=== PATIENT | female | born 2000 | race African-American/Black ===

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

== ENCOUNTER 2018-01-15 | Emergency (ER) | payer SELFPAY ==
[2018-01-15 00:47] LABS: Bilirubin Negative (Negative); Blood, Urine Negative (Negative); Clarity Cloudy (Clear); Glucose, Urine (Dipstick) Negative (Negative); Leukocyte Negative (Negative); Nitrite Negative (Negative); Protein, Urine (Dipstick) Negative (Neg-Trace); Specific Gravity, Urine 1.015 (1.005-1.030); Urobilinogen 0.2 mg/dL (0.2-1.0)
[2018-01-15 01:03] LABS: Bacteria/HPF Rare-Few HPF (None Seen); Crystals/HPF 4+ AMORPH PHOS HPF (Negative); RBC/HPF 0-3 HPF (0-3)
[2018-01-15 01:04] LABS: #Basophils 0.1 thou/uL (0.0-0.2); #Lymphocytes 2.6 thou/uL (1.20-3.40); #Monocytes 0.5 thou/uL (0.11-0.59); %Basophils 0.9 % (0.0-1.0); %Eosinophils 0.6 % (0.0-10.0); %Lymphocytes 36.2 % (28.0-48.0); %Neutrophils 55.4 % (31.0-61.0); BHCG - Serum Negative (NEGATIVE); Hemoglobin 11.4 g/dL (12.0-16.0); Mean Corpuscular HGB CONC 33.7 g/dL (32.0-36.0); Mean Corpuscular Hemoglobin 29.9 pg (25.0-35.0); Mean Corpuscular Volume 88.8 fl (77.0-87.0); Mean Platelet Volume 5.9 fL (7.4-10.4); Platelet Count 238 thou/uL (130-400); Pregs Control Background? CLEAR/WHITE (CLR/WHITE); Pregs Control Bar Appear? YES (CONTROL BAR); RBC Distribution Width 11.9 % (11.5-14.5); Red Blood Cell (RBC) Count 3.79 mill/uL (4.00-5.20); White Blood Cell (WBC) Count 7.2 thou/uL (4.8-10.8)
[2018-01-15 01:27] LABS: ALT (SGPT) Less than 7 U/L (8-55); AST (SGOT) 15 U/L (5-30); Albumin 3.9 g/dL (3.5-5.0); Alkaline Phosphatase 57 U/L (40-150); Anion Gap 11 mmol/L (10-20); BUN (Urea Nitrogen) 15 mg/dL (8.4-21.0); Bilirubin, Total 0.3 mg/dL (0.2-1.2); Calc. Creatinine Clearance 0 mL/min (70-130); Calcium 9.3 mg/dL (7.8-10.44); Carbon Dioxide 26 mmol/L (22-29); Chloride 108 mmol/L (98-107); Estimated GFR-MDRD Greater than 90; Globulin 2.6 g/dL (2.4-3.5); Lipase 17 U/L (8-78); Potassium 3.6 mmol/L (3.5-5.1); Protein, Total 6.5 g/dL (6.0-8.3); Sodium 141 mmol/L (136-145)
[2018-01-15 03:06] LABS: Glucose 80 mg/dL (70-105)
== END 2018-01-15 01:42 | disposition home or self-care (01) ==
LOC: MADERS
DX: N39.0 Urinary tract infection, site not specified (principal); F90.9 Attention-deficit hyperactivity disorder, unspecified type; F17.210 Nicotine dependence, cigarettes, uncomplicated
CPT/HCPCS: 36415; 80053; 81001; 82150; 83690; 84703; 85025; 87086; 99284

== ENCOUNTER 2018-03-20 11:12 | Emergency (ER) | payer OTHER ==
--- NOTE | 2018-03-20 13:07 | RAD ---
LEFT WRIST 3 VIEWS: History Pain without trauma. COMPARISON: None. FINDINGS: No acute displaced fracture or malalignment. Scapholunate interval is normal. The scaphoid itself i s normal. Normal ulnar variance. Soft tissues are unremarkable. IMPRESSION: Normal examination of the wrist. POS: [facility]
== END 2018-03-20 12:53 | disposition home or self-care (01) ==
LOC: MADERS 11:12
DX: S63.502A Unspecified sprain of left wrist, initial encounter (principal); F90.9 Attention-deficit hyperactivity disorder, unspecified type; F17.210 Nicotine dependence, cigarettes, uncomplicated; X58.XXXA Exposure to other specified factors, initial encounter

== ENCOUNTER 2018-06-17 17:37 | Emergency (ER) | payer OTHER ==
[2018-06-17 18:52] LABS: Bilirubin Negative (Negative); Blood, Urine Trace (Negative); Glucose, Urine (Dipstick) Negative (Negative); Leukocyte Trace (Negative); Nitrite Negative (Negative); Protein, Urine (Dipstick) Negative (Neg-Trace); Urobilinogen 0.2 mg/dL (0.2-1.0)
[2018-06-17 18:57] LABS: Bacteria/HPF 1+ HPF (None Seen); Clarity Slightly Cloudy (Clear); RBC/HPF 0-3 HPF (0-3)
[2018-06-17 18:59] LABS: #Basophils 0.2 thou/uL (0.0-0.2); #Monocytes 0.5 thou/uL (0.11-0.59); #Neutrophils 6.3 thou/uL (1.40-6.50); %Basophils 2.1 % (0.0-1.0); %Eosinophils 0.4 % (0.0-10.0); %Lymphocytes 22.1 % (28.0-48.0); %Monocytes 5.3 % (0.0-4.0); %Neutrophils 70.1 % (31.0-61.0); Hemoglobin 12.1 g/dL (12.0-16.0); Mean Corpuscular Hemoglobin 31.5 pg (25.0-35.0); Mean Corpuscular Volume 92.7 fL (78.0-98.0); Mean Platelet Volume 7.6 fL (7.4-10.4); Platelet Count 216 thou/uL (130-400); RBC Distribution Width 11.4 % (11.5-14.5); Red Blood Cell (RBC) Count 3.84 mill/uL (4.00-5.20)
[2018-06-17 19:08] LABS: ALT (SGPT) Less than 7 U/L (8-55); AST (SGOT) 17 U/L (5-34); Albumin 3.6 g/dL (3.5-5.0); Alkaline Phosphatase 67 U/L (40-150); Anion Gap 15 mmol/L (10-20); BUN (Urea Nitrogen) 9 mg/dL (7.0-18.7); Bilirubin, Total 0.3 mg/dL (0.2-1.2); Calc. Creatinine Clearance 0 mL/min (70-130); Carbon Dioxide 22 mmol/L (22-29); Chloride 107 mmol/L (98-107); Estimated GFR-MDRD Greater than 90; Glucose 82 mg/dL (70-105); Lipase 18 U/L (8-78); Potassium 3.8 mmol/L (3.5-5.1); Protein, Total 6.6 g/dL (6.0-8.3); Sodium 140 mmol/L (136-145)
== END 2018-06-17 19:30 | disposition home or self-care (01) ==
LOC: MADERS 17:37
DX: O99.89 Other specified diseases and conditions complicating pregnancy, childbirth and the puerperium (principal); R10.32 Left lower quadrant pain; O99.332 Smoking (tobacco) complicating pregnancy, second trimester; F17.210 Nicotine dependence, cigarettes, uncomplicated; O99.342 Other mental disorders complicating pregnancy, second trimester; F90.9 Attention-deficit hyperactivity disorder, unspecified type; Z3A.23 23 weeks gestation of pregnancy
CPT/HCPCS: 36415; 80053; 81003; 81015; 83690; 84702; 85025; 99284

== ENCOUNTER 2019-01-19 21:45 | Emergency (ER) | payer OTHER, SELFPAY | END 2019-01-19 22:08 | disposition home or self-care (01) | LOC: MADERS 21:45 | DX: Z20.2 Contact with and (suspected) exposure to infections with a predominantly sexual mode of transmission (principal); F32.9 Major depressive disorder, single episode, unspecified; F90.9 Attention-deficit hyperactivity disorder, unspecified type; F17.210 Nicotine dependence, cigarettes, uncomplicated; Z79.899 Other long term (current) drug therapy | CPT/HCPCS: 99281 ==

== ENCOUNTER 2019-07-22 14:24 | Emergency (ER) | payer MEDICAID, SELFPAY ==
[2019-07-22 16:07] LABS: #Basophils 0.1 thou/uL (0.0-0.2); #Eosinphils 0.1 thou/uL (0.0-0.7); #Lymphocytes 2.4 thou/uL (1.20-3.40); #Monocytes 0.5 thou/uL (0.11-0.59); #Neutrophils 2.7 thou/uL (1.40-6.50); %Basophils 1.2 % (0.0-1.0); %Eosinophils 1.5 % (0.0-10.0); %Lymphocytes 42.3 % (21.0-51.0); %Monocytes 7.9 % (0.0-10.0); %Neutrophils 47.1 % (42.0-75.0); Hemoglobin 11.6 g/dL (12.0-16.0); Mean Corpuscular HGB CONC 30.8 g/dL (32.0-36.0); Mean Corpuscular Hemoglobin 30.9 pg (27.0-31.0); Mean Corpuscular Volume 100.4 fL (78.0-98.0); Mean Platelet Volume 6.3 fL (7.4-10.4); Platelet Count 334 thou/uL (130-400); RBC Distribution Width 12.3 % (11.5-14.5); Red Blood Cell (RBC) Count 3.76 mill/uL (4.20-5.40); White Blood Cell (WBC) Count 5.7 thou/uL (4.8-10.8)
[2019-07-22 16:14] LABS: BHCG - Serum Negative (NEGATIVE); Pregs Control Background? CLEAR/WHITE (CLR/WHITE); Pregs Control Bar Appear? YES (CONTROL BAR)
[2019-07-22 16:24] LABS: ALT (SGPT) 9 U/L (8-55); AST (SGOT) 15 U/L (5-34); Albumin 4.1 g/dL (3.5-5.0); Alkaline Phosphatase 63 U/L (40-110); Anion Gap 13 mmol/L (10-20); BUN (Urea Nitrogen) 9 mg/dL (7.0-18.7); Bilirubin, Total 0.5 mg/dL (0.2-1.2); Calc. Creatinine Clearance 0 mL/min (70-130); Calcium 9.2 mg/dL (7.8-10.44); Carbon Dioxide 27 mmol/L (22-29); Chloride 107 mmol/L (98-107); Estimated GFR-MDRD Greater than 90; Globulin 2.8 g/dL (2.4-3.5); Glucose 85 mg/dL (70-105); Potassium 3.7 mmol/L (3.5-5.1); Protein, Total 6.9 g/dL (6.0-8.3); Sodium 143 mmol/L (136-145)
--- NOTE | 2019-07-22 16:38 | RAD ---
XR Chest 1 View Portable History: Palpitations Comparison: None. Findings: Lungs are clear. No pneumothorax or effusion. Cardiac silhouette and mediastinal contours a re within normal limits. No acute osseous abnormality. Impression: No acute intrathoracic abnormality.
== END 2019-07-22 16:50 | disposition home or self-care (01) ==
LOC: MADERS 14:24
DX: F41.9 Anxiety disorder, unspecified (principal); R00.2 Palpitations; F32.9 Major depressive disorder, single episode, unspecified; F17.210 Nicotine dependence, cigarettes, uncomplicated
CPT/HCPCS: 36415; 71045; 80053; 83880; 84484; 84703; 85025; 93005

== ENCOUNTER 2019-09-27 17:36 | Emergency (ER) | payer MEDICAID, OTHER, SELFPAY ==
[2019-09-27 17:57] LABS: Bilirubin Negative (Negative); Blood, Urine Negative (Negative); Clarity Cloudy (Clear); Glucose, Urine (Dipstick) Negative (Negative); Leukocyte Trace (Negative); Nitrite Negative (Negative); Protein, Urine (Dipstick) Negative (Neg-Trace)
[2019-09-27 17:59] LABS: Pregu Control Background? CLEAR/WHITE (CLR/WHITE); Pregu Control Bar Appear? YES (CONTROL BAR)
[2019-09-27 18:00] LABS: Pregnancy Test - Urine (BHCG) Negative (Negative)
[2019-09-27 18:03] LABS: Bacteria/HPF Rare-Few HPF (None Seen); RBC/HPF None Seen HPF (0-3)
[2019-09-27] MEDS ORDERED: Ibuprofen 800 MG TAB ONE (18:34)
== END 2019-09-27 18:21 | disposition home or self-care (01) ==
LOC: MADERS 17:36
DX: R10.2 Pelvic and perineal pain (principal); F32.9 Major depressive disorder, single episode, unspecified; F90.9 Attention-deficit hyperactivity disorder, unspecified type; F17.210 Nicotine dependence, cigarettes, uncomplicated
CPT/HCPCS: 81003; 81015; 81025; 87086; 99284

== ENCOUNTER 2020-01-09 07:02 | Emergency (ER) | payer OTHER | END 2020-01-09 07:50 | disposition home or self-care (01) | LOC: MADERS 07:02 | DX: S83.411A Sprain of medial collateral ligament of right knee, initial encounter (principal); F32.9 Major depressive disorder, single episode, unspecified; F90.9 Attention-deficit hyperactivity disorder, unspecified type; F17.210 Nicotine dependence, cigarettes, uncomplicated; X58.XXXA Exposure to other specified factors, initial encounter | CPT/HCPCS: 99283 ==

== ENCOUNTER 2020-02-25 19:40 | Emergency (ER) | payer OTHER ==
[2020-02-25] MEDS ORDERED: Acetaminophen 500 MG TAB ONE (20:02)
[2020-02-25 20:24] LABS: Bilirubin Negative (Negative); Blood, Urine Negative (Negative); Clarity Clear (Clear); Glucose, Urine (Dipstick) Negative (Negative); Leukocyte Negative (Negative); Nitrite Negative (Negative); Protein, Urine (Dipstick) Negative (Neg-Trace); Urobilinogen 0.2 mg/dL (Less than 2)
== END 2020-02-25 20:40 | disposition home or self-care (01) ==
LOC: MADERS 19:40
DX: O99.89 Other specified diseases and conditions complicating pregnancy, childbirth and the puerperium (principal); R10.2 Pelvic and perineal pain; O99.342 Other mental disorders complicating pregnancy, second trimester; F90.9 Attention-deficit hyperactivity disorder, unspecified type; F32.9 Major depressive disorder, single episode, unspecified; F17.210 Nicotine dependence, cigarettes, uncomplicated; Z79.899 Other long term (current) drug therapy; Z3A.19 19 weeks gestation of pregnancy
CPT/HCPCS: 81003

== ENCOUNTER 2020-08-07 09:09 | Emergency (ER) | payer OTHER ==
[2020-08-08 03:12] LABS: SARS-CoV-2 MS2 Positive; SARS-CoV-2 N Gene Negative; SARS-CoV-2 S Gene Negative; SARS-CoV-2 by NAA Not Detected (NotDetected); SARS-CoV-2 orf1ab Negative
== END 2020-08-07 09:30 | disposition home or self-care (01) ==
LOC: MADERS 09:09
DX: Z20.828 Contact with and (suspected) exposure to other viral communicable diseases (principal); F17.210 Nicotine dependence, cigarettes, uncomplicated
CPT/HCPCS: 87635; 99283; U0003

== ENCOUNTER 2020-10-28 11:18 | Emergency (ER) | payer OTHER ==
[2020-10-28] MEDS ORDERED: Acetaminophen 500 MG TAB ONE (11:49)
[2020-10-28 12:09] LABS: Hemoglobin 12.5 g/dL (12.0-16.0); Mean Corpuscular Hemoglobin 30.6 pg (27.0-31.0); Mean Corpuscular Volume 95.6 fL (78.0-98.0); Mean Platelet Volume 6.2 fL (7.4-10.4); Platelet Count 249 thou/uL (130-400); RBC Distribution Width 11.7 % (11.5-14.5); Red Blood Cell (RBC) Count 4.06 mill/uL (4.20-5.40); White Blood Cell (WBC) Count 7.9 thou/uL (4.8-10.8)
[2020-10-28 12:14] LABS: Pregnancy Test - Urine (BHCG) Negative (Negative)
[2020-10-28 12:15] LABS: Pregu Control Background? CLEAR/WHITE (CLR/WHITE); Pregu Control Bar Appear? YES (CONTROL BAR); Specific Gravity 1.031 (1.002-1.036)
[2020-10-28 12:20] LABS: MDiff Complete? YES; Manual Diff?? YES
[2020-10-28 12:21] LABS: Anisocytosis SLIGHT = 6-15 cells (100X) (0-5/hpf); Band 1 % (5-11); Eosinophils 1 % (0-10); Lymphocytes 29 % (21-51); Monocytes 6 % (0-10); Neutrophil 63 % (42-75); Platelet Morphology Comment Appears Adequate
== END 2020-10-28 12:33 | disposition home or self-care (01) ==
LOC: MADERS 11:18
DX: N92.1 Excessive and frequent menstruation with irregular cycle (principal); Z71.6 Tobacco abuse counseling; Z79.899 Other long term (current) drug therapy; Z87.891 Personal history of nicotine dependence
CPT/HCPCS: 36415; 81025; 85025; 99406

== ENCOUNTER 2021-04-10 10:47 | Emergency (ER) | payer OTHER | END 2021-04-10 12:20 | disposition home or self-care (01) | LOC: MADERS 10:47 | DX: L03.032 Cellulitis of left toe (principal); Z87.891 Personal history of nicotine dependence; Z79.899 Other long term (current) drug therapy | CPT/HCPCS: 99283 ==

== ENCOUNTER 2021-05-15 09:01 | Emergency (ER) | payer OTHER | END 2021-05-15 10:04 | disposition home or self-care (01) | LOC: MADERS 09:01 | DX: S83.91XA Sprain of unspecified site of right knee, initial encounter (principal); Z87.891 Personal history of nicotine dependence; X58.XXXA Exposure to other specified factors, initial encounter ==

== ENCOUNTER 2022-01-17 13:49 | Emergency (ER) | payer OTHER | END 2022-01-17 14:31 | disposition left against medical advice (07) | LOC: MADERS 13:49 | DX: Z53.21 Procedure and treatment not carried out due to patient leaving prior to being seen by health care provider (principal) ==

== ENCOUNTER 2022-08-16 14:24 | Emergency (ER) | payer OTHER | END 2022-08-16 16:15 | disposition home or self-care (01) | LOC: MADERS 14:24 | DX: M25.562 Pain in left knee (principal); G89.29 Other chronic pain ==

== ENCOUNTER 2022-12-22 14:22 | Emergency (ER) | payer OTHER ==
[2022-12-22 15:05] LABS: Bilirubin Negative (Negative); Blood, Urine Negative (Negative); Clarity Clear (Clear); Glucose, Urine (Dipstick) Negative (Negative); Ketone, Urine Negative (Negative); Leukocyte Negative (Negative); Nitrite Negative (Negative); Protein, Urine (Dipstick) Negative (Neg-Trace); Specific Gravity, Urine 1.022 (1.002-1.036); pH, Urine 7.5 (5.0-9.0)
[2022-12-22 15:07] LABS: Pregnancy Test - Urine (BHCG) Negative (Negative); Pregu Control Background? CLEAR/WHITE (CLR/WHITE); Pregu Control Bar Appear? YES (CONTROL BAR); Specific Gravity 1.022 (1.002-1.036)
[2022-12-22 16:00] LABS: ALT (SGPT) 11 U/L (8-55); AST (SGOT) 21 U/L (5-34); Albumin 4.2 g/dL (3.5-5.0); Alkaline Phosphatase 78 U/L (40-110); Anion Gap 12 mmol/L (10-20); BUN (Urea Nitrogen) 13 mg/dL (7.0-18.7); Bilirubin, Total 0.7 mg/dL (0.2-1.2); Calc. Creatinine Clearance 0 mL/min (70-130); Calcium 9.1 mg/dL (7.8-10.44); Carbon Dioxide 25 mmol/L (22-29); Chloride 104 mmol/L (98-107); Estimated GFR 109; Glucose 80 mg/dL (70-105); Lipase 16 U/L (8-78); Potassium 3.8 mmol/L (3.5-5.1); Protein, Total 7.2 g/dL (6.0-8.3); Sodium 137 mmol/L (136-145)
[2022-12-22 16:02] LABS: Hemoglobin 13.7 g/dL (12.0-16.0); Mean Corpuscular HGB CONC 32.4 g/dL (32.0-36.0); Mean Corpuscular Hemoglobin 31.1 pg (27.0-31.0); Mean Corpuscular Volume 95.7 fl (78.0-98.0); Mean Platelet Volume 7.7 fL (7.4-10.4); Platelet Count 242 10x3/uL (130-400); RBC Distribution Width 13.3 % (11.5-14.5); White Blood Cell (WBC) Count 8.7 10x3/uL (4.8-10.8)
[2022-12-22 16:03] LABS: Lymphocytes 29 % (21-51); MDiff Complete? YES; Monocytes 10 % (0-10); Neutrophil 53 % (42-75); Platelet Morphology Comment Appears Adequate; Reactive Lymphocytes 8 % (0-10)
== END 2022-12-22 16:30 | disposition home or self-care (01) ==
LOC: MADERS 14:22
DX: K58.9 Irritable bowel syndrome, unspecified (principal); F17.210 Nicotine dependence, cigarettes, uncomplicated
CPT/HCPCS: 36415; 74022; 80053; 81003; 81025; 83690; 85025

== ENCOUNTER 2023-03-03 03:32 | Emergency (ER) | payer OTHER ==
[2023-03-03] MEDS ORDERED: Morphine 2 MG/ML VIAL ONE ×2 (04:38→06:55)
[2023-03-03] MEDS ORDERED: Ketorolac Tromethamine 30 MG/ML VIAL ONE (04:39)
[2023-03-03] MEDS ORDERED: Sodium Chloride 0.9% 1,000 ML ONE ×2 (04:39→06:55)
[2023-03-03] MEDS ORDERED: Ondansetron PF 4 MG/2 ML Vial ONE (04:39)
[2023-03-03 04:44] LABS: Hemoglobin 13.3 g/dL (12.0-16.0); Lymphocytes 32 % (21-51); MDiff Complete? YES; Mean Corpuscular HGB CONC 32.4 g/dL (32.0-36.0); Mean Corpuscular Hemoglobin 31.3 pg (27.0-31.0); Mean Corpuscular Volume 96.4 fl (78.0-98.0); Monocytes 6 % (0-10); Neutrophil 62 % (42-75); Platelet Count 266 10x3/uL (130-400); RBC Distribution Width 12.9 % (11.5-14.5); Red Blood Cell (RBC) Count 4.26 mill/uL (4.20-5.40); White Blood Cell (WBC) Count 10.1 10x3/uL (4.8-10.8)
[2023-03-03 04:58] LABS: Bilirubin Negative (Negative); Blood, Urine Moderate (Negative); Clarity Cloudy (Clear); Glucose, Urine (Dipstick) Negative (Negative); Ketone, Urine Trace mg/dL (Negative); Leukocyte Small (Negative); Nitrite Negative (Negative); Protein, Urine (Dipstick) 100 mg/dL (Neg-Trace); Specific Gravity, Urine 1.025 (1.005-1.030); Urobilinogen 0.2 mg/dL (Less than 2)
[2023-03-03 04:59] LABS: Bacteria/HPF 1+ HPF (None Seen); CAUTI Indications for Culture Dysuria,urgency,freq; Pregnancy Test - Urine (BHCG) Negative (Negative); Pregu Control Background? CLEAR/WHITE (CLR/WHITE); Pregu Control Bar Appear? YES (CONTROL BAR); Specific Gravity 1.025 (1.002-1.036); WBC/HPF Greater than 50 HPF (0-3)
[2023-03-03 04:59] LABS: ALT (SGPT) 10 U/L (8-55); AST (SGOT) 22 U/L (5-34); Albumin 4.2 g/dL (3.5-5.0); Alkaline Phosphatase 77 U/L (40-110); Anion Gap 14 mmol/L (10-20); BUN (Urea Nitrogen) 12 mg/dL (7.0-18.7); Bilirubin, Total 0.6 mg/dL (0.2-1.2); Calc. Creatinine Clearance 0 mL/min (70-130); Calcium 9.1 mg/dL (7.8-10.44); Carbon Dioxide 22 mmol/L (22-29); Chloride 107 mmol/L (98-107); Estimated GFR 104; Globulin 3.1 g/dL (2.4-3.5); Glucose 87 mg/dL (70-105); Potassium 4.3 mmol/L (3.5-5.1); Protein, Total 7.3 g/dL (6.0-8.3); Sodium 139 mmol/L (136-145)
[2023-03-03 05:00] LABS: Urine Culture Reflex Yes Yes
[2023-03-03] MEDS ORDERED: cefTRIAXone (ROCEPHIN) 1 GM VIAL ONE (06:55)
[2023-03-03] MEDS ORDERED: Sodium Chloride 0.9% 100 ML ONE (06:55)
[2023-03-03] MEDS ORDERED: Methocarbamol 500 MG TAB ONE (07:09)
== END 2023-03-03 07:42 | disposition home or self-care (01) ==
LOC: MADERS 03:32
DX: N13.6 Pyonephrosis (principal); F17.290 Nicotine dependence, other tobacco product, uncomplicated; Z79.899 Other long term (current) drug therapy
CPT/HCPCS: 74176; 80053; 81001; 81025; 85025; 87077; 87086; 96361; 96365; 96375; 96376; J0696; J1885; J2272; J2405; J7050

== ENCOUNTER 2023-04-10 16:59 | Emergency (ER) | payer OTHER ==
[2023-04-10] MEDS ORDERED: Pantoprazole 40 MG VIAL ONE (19:29)
[2023-04-10] MEDS ORDERED: Acetaminophen 500 MG TAB ONE (19:29)
[2023-04-10] MEDS ORDERED: Sodium Chloride 0.9% 1,000 ML ONE (19:29)
[2023-04-10] MEDS ORDERED: Ondansetron PF 4 MG/2 ML Vial ONE (19:29)
[2023-04-10 19:42] LABS: Pregnancy Test - Urine (BHCG) Negative (Negative); Pregu Control Background? CLEAR/WHITE (CLR/WHITE); Pregu Control Bar Appear? YES (CONTROL BAR); Specific Gravity 1.025 (1.002-1.036)
[2023-04-10 19:43] LABS: Bacteria/HPF Rare-Few HPF (None Seen); Bilirubin Negative (Negative); Blood, Urine Large (Negative); CAUTI Indications for Culture Pelvic or flank pain; Clarity Cloudy (Clear); Glucose, Urine (Dipstick) Negative (Negative); Ketone, Urine 40 mg/dL (Negative); Leukocyte Negative (Negative); Mucous/LPF 3+ LPF (<2+); Nitrite Negative (Negative); Protein, Urine (Dipstick) 30 mg/dL (Neg-Trace); RBC/HPF Greater than 50 HPF (0-3); Specific Gravity, Urine 1.025 (1.005-1.030); Squamous Epithelial 0-3 HPF (0-3); Trichomonas/HPF 1+ HPF (None Seen); Urobilinogen 0.2 mg/dL (Less than 2)
[2023-04-10 19:44] LABS: Urine Culture Reflex No No
[2023-04-10 19:45] LABS: Cocaine Metabolite Screen Not Detected (NotDetected); Phencyclidine (PCP) Not Detected (NotDetected); THC/Cannabinoid Screen Detected (NotDetected)
[2023-04-10 19:46] LABS: Amphetamine Not Detected (NotDetected); Barbiturates Screen Not Detected (NotDetected); Benzodiazepine Screen Not Detected (NotDetected); Methadone Not Detected (NotDetected); Methamphetamine Not Detected (NotDetected); Opiate Screen Not Detected (NotDetected); Oxycodone Screen Not Detected (NotDetected); Tricyclic Screen Not Detected (NotDetected)
[2023-04-10 20:11] LABS: ALT (SGPT) 15 U/L (8-55); AST (SGOT) 36 U/L (5-34); Albumin 4.6 g/dL (3.5-5.0); Alkaline Phosphatase 80 U/L (40-110); Anion Gap 20 mmol/L (10-20); BUN (Urea Nitrogen) 10 mg/dL (7.0-18.7); Bilirubin, Total 0.5 mg/dL (0.2-1.2); Calc. Creatinine Clearance 0 mL/min (70-130); Calcium 9.1 mg/dL (7.8-10.44); Carbon Dioxide 20 mmol/L (22-29); Chloride 103 mmol/L (98-107); Estimated GFR 93; Globulin 3.6 g/dL (2.4-3.5); Glucose 86 mg/dL (70-105); Lipase 13 U/L (8-78); Potassium 3.5 mmol/L (3.5-5.1); Protein, Total 8.2 g/dL (6.0-8.3); Sodium 139 mmol/L (136-145)
[2023-04-10 20:24] LABS: Band 1 % (5-11); Hematocrit 42.9 % (36.0-47.0); Hemoglobin 13.9 g/dL (12.0-16.0); Lymphocytes 11 % (21-51); MDiff Complete? YES; Mean Corpuscular HGB CONC 32.3 g/dL (32.0-36.0); Mean Corpuscular Hemoglobin 31.3 pg (27.0-31.0); Mean Corpuscular Volume 96.8 fl (78.0-98.0); Monocytes 9 % (0-10); Neutrophil 79 % (42-75); Platelet Count 241 10x3/uL (130-400); RBC Distribution Width 12.7 % (11.5-14.5); Red Blood Cell (RBC) Count 4.43 mill/uL (4.20-5.40); White Blood Cell (WBC) Count 6.6 10x3/uL (4.8-10.8)
[2023-04-10] MEDS ORDERED: metroNIDAZOLE 250 MG TAB ONE (20:55)
[2023-04-10] MEDS ORDERED: Sodium Chloride 0.9% 100 ML ONE (20:55)
[2023-04-10] MEDS ORDERED: cefTRIAXone (ROCEPHIN) 1 GM VIAL ONE (20:55)
[2023-04-11 16:18] LABS: Chlam.trachomatis by PCR,Urine Not Detected (NotDetected); GC N.gonorrhoeae PCR,UrineVOID Not Detected (NotDetected)
== END 2023-04-10 21:24 | disposition home or self-care (01) ==
LOC: MADERS 16:59
DX: N13.2 Hydronephrosis with renal and ureteral calculous obstruction (principal); A59.01 Trichomonal vulvovaginitis; F17.290 Nicotine dependence, other tobacco product, uncomplicated; U07.1 COVID-19
CPT/HCPCS: 74176; 80053; 80306; 81001; 81025; 83690; 85025; 87491; 87591; 87635; 87804; 96361; 96374; 96375; C9113; J0696; J2405; J3490; J7050

== ENCOUNTER 2023-05-14 11:10 | Emergency (ER) | payer OTHER ==
[2023-05-14 11:43] LABS: Pregnancy Test - Urine (BHCG) Negative (Negative); Specific Gravity 1.026 (1.002-1.036)
[2023-05-14 11:44] LABS: Pregu Control Background? CLEAR/WHITE (CLR/WHITE); Pregu Control Bar Appear? YES (CONTROL BAR)
[2023-05-14 11:47] LABS: Bilirubin Negative (Negative); Blood, Urine Negative (Negative); Glucose, Urine (Dipstick) Negative (Negative); Ketone, Urine Negative (Negative); Leukocyte Negative (Negative); Nitrite Negative (Negative); Protein, Urine (Dipstick) 30 mg/dL (Neg-Trace); pH, Urine 8.5 (5.0-9.0)
[2023-05-14 11:50] LABS: Clarity Hazy (Clear)
[2023-05-14 11:51] LABS: Bacteria/HPF 1+ HPF (None Seen); CAUTI Indications for Culture Pelvic or flank pain; RBC/HPF 0-3 HPF (0-3); Specific Gravity, Urine 1.026 (1.002-1.036); Squamous Epithelial 0-3 HPF (0-3); WBC/HPF 0-3 HPF (0-3)
[2023-05-14 11:53] LABS: Urine Culture Reflex No No
== END 2023-05-14 12:10 | disposition home or self-care (01) ==
LOC: MADERS 11:10
DX: N20.0 Calculus of kidney (principal); F17.290 Nicotine dependence, other tobacco product, uncomplicated
CPT/HCPCS: 81001; 81025; 99284

== ENCOUNTER 2024-03-20 09:12 | Emergency (ER) | payer OTHER, SELFPAY ==
[2024-03-20 10:21] LABS: Hematocrit 49.3 % (36.0-47.0); Hemoglobin 14.8 g/dL (12.0-16.0); Mean Corpuscular HGB CONC 30.1 g/dL (32.0-36.0); Mean Corpuscular Hemoglobin 29.4 pg (27.0-31.0); Mean Corpuscular Volume 97.7 fl (78.0-98.0); Mean Platelet Volume 6.1 fL (7.4-10.4); Platelet Count 258 10x3/uL (130-400); RBC Distribution Width 13.8 % (11.5-14.5); Red Blood Cell (RBC) Count 5.05 mill/uL (4.20-5.40); White Blood Cell (WBC) Count 6.2 10x3/uL (4.8-10.8)
[2024-03-20 10:27] LABS: Manual Diff?? YES
[2024-03-20 10:28] LABS: Anisocytosis SLIGHT = 6-15 cells (100X) (0-5/hpf); Band 3 % (5-11); Lymphocytes 42 % (21-51); MDiff Complete? YES; Monocytes 5 % (0-10); Neutrophil 50 % (42-75); Platelet Adequacy Comment Appears Adequate
[2024-03-20 10:30] LABS: ALT (SGPT) 15 U/L (8-55); AST (SGOT) 27 U/L (5-34); Albumin 4.3 g/dL (3.5-5.0); Alkaline Phosphatase 104 U/L (40-110); Anion Gap 16 mmol/L (10-20); BUN (Urea Nitrogen) 9 mg/dL (7.0-18.7); Bilirubin, Total 1.3 mg/dL (0.2-1.2); Calc. Creatinine Clearance 0 mL/min (70-130); Calcium 9.7 mg/dL (7.8-10.44); Carbon Dioxide 25 mmol/L (22-29); Chloride 103 mmol/L (98-107); Estimated GFR 82; Glucose 89 mg/dL (70-105); Potassium 3.8 mmol/L (3.5-5.1); Protein, Total 8.3 g/dL (6.0-8.3); Sodium 140 mmol/L (136-145)
[2024-03-22 05:05] LABS: Chlamydia by PCR, Vaginal Swab Not Detected (NotDetected); GC by PCR, Vaginal Swab Not Detected (NotDetected)
== END 2024-03-20 10:48 | disposition home or self-care (01) ==
LOC: MADERS 09:12
DX: N93.9 Abnormal uterine and vaginal bleeding, unspecified (principal); F17.290 Nicotine dependence, other tobacco product, uncomplicated
CPT/HCPCS: 36415; 80053; 84702; 85025; 86850; 86900; 86901; 87480; 87491; 87510; 87591; 87660; 99284

== ENCOUNTER 2024-06-09 14:01 | Emergency (ER) | payer OTHER ==
[2024-06-09] MEDS ORDERED: Acetaminophen 500 MG TAB ONE (14:25)
[2024-06-09 14:38] LABS: Pregnancy Test - Urine (BHCG) Negative (Negative); Pregu Control Background? CLEAR/WHITE (CLR/WHITE); Pregu Control Bar Appear? YES (CONTROL BAR); Specific Gravity 1.025 (1.002-1.036)
[2024-06-09] MEDS ORDERED: Ketorolac Tromethamine 30 MG (1 mL) VIAL ONE (15:15)
== END 2024-06-09 15:30 | disposition home or self-care (01) ==
LOC: MADERS 14:01
DX: S09.90XA Unspecified injury of head, initial encounter (principal); F17.290 Nicotine dependence, other tobacco product, uncomplicated; W22.8XXA Striking against or struck by other objects, initial encounter
CPT/HCPCS: 70450; 81025; 96372; 99284; J1885

== ENCOUNTER 2025-04-18 19:04 | Emergency (ER) | payer SELFPAY ==
[2025-04-18 19:50] LABS: Glucose, Urine (Dipstick) Negative (Negative); Leukocyte Negative (Negative); Protein, Urine (Dipstick) Negative (Neg-Trace); Specific Gravity, Urine 1.020 (1.005-1.030)
[2025-04-18 19:55] LABS: CAUTI Indications for Culture Dysuria,urgency,freq; RBC/HPF None Seen HPF (0-3); WBC/HPF 0-3 HPF (0-3)
[2025-04-18 19:56] LABS: Urine Culture Reflex No No
== END 2025-04-18 20:36 | disposition home or self-care (01) ==
LOC: MADERS 19:04
DX: J06.9 Acute upper respiratory infection, unspecified (principal); B97.89 Other viral agents as the cause of diseases classified elsewhere; F10.10 Alcohol abuse, uncomplicated
CPT/HCPCS: 81001; 99284